=== PATIENT | male | born 2005 | race Caucasian/White ===

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

== ENCOUNTER 2024-07-03 16:24 | Emergency (ER) | payer OTHER, SELFPAY ==
[2024-07-03 16:25] VITALS: BP 116/72; PULSE 127; RESP 22; TEMP 36.9; O2SAT 100; BMI 31.0
--- NOTE | 2024-07-03 17:02 | EX.ED.DYSGE1 ---
HPI History of Present Illness Chief Complaint: General Illness Informant: patient Onset/Context/Timing Onset: Today Context: Gradual Onset Timing: Continuous Quality: Sharp Location: Right upper quadrant, right flank, and back Worsened by: Standing Relieved by: Nothing Narrative Narrative: Patient presents with right upper quadrant pain and right flank pain that began earlier this morning. Patient states that he started with some nausea and then started having pain. Patient describes the pain as sharp. Patient states it is over the right upper abdomen, right flank, and back. Patient states it is constant. Patient states it is worse when he stands up. Patient admits to some lightheadedness. Patient admits to nausea, vomiting, and diarrhea. Patient denies any melena or hematochezia. Patient denies any hematemesis or coffee-ground emesis. Patient denies any dysuria or hematuria. Patient admits to subjective fevers and chills. Patient also admits to some sweats. [facility] Medical History (Updated 07/03/24 @ 19:[address] Andrew Crook DO) Abdominal pain Hx of fracture of arm (~2015) Home Medications ?Medication ?Instructions ?Recorded ?Last Taken ?Type multivitamin,[id number]-[id number] PO 03/03/20 Unknown History (Complete Multivitamin tablet) amoxicillin 875 mg-potassium 875 mg PO Q12H #20 TABLETS 07/03/24 Unknown Rx clavulanate 125 mg tablet Allergy/AdvReac Type Severity Reaction Status Date / Time No Known Allergies Allergy Verified 07/03/24 16:25 Surgical History Hx of tonsillectomy (~2007) Social History Smoking Status: Unknown if ever smoked alcohol intake: never what type of physical activity do you participate in: walking, running and weight training frequency: 5-6 times per week duration: 45-60 minutes/day ROS ROS ED Constitutional Constitutional ED: Reports chills, fever(s), subjective and sweats Eyes Eyes: Denies blurry vision or change in vision ENT ENT ED: Denies rhinorrhea or sore throat Cardiovascular Cardiovascular: Denies chest pain or palpitations Respiratory/Chest Respiratory/Chest: Denies cough or dyspnea Gastrointestinal Gastrointestinal: Reports abdominal pain, diarrhea, nausea and vomiting; Denies melena Genitourinary Genitourinary ED: Denies dysuria, hematuria or urinary frequency Musculoskeletal Musculoskeletal: Reports back pain; Denies neck pain Integumentary Denies abscess or rash Neurologic Neurologic: Reports headache(s); Denies weakness Allergic/Immunologic Allergic/Immunologic ED: Denies mouth swelling or urticaria EXAM Physical Exam Const Vital Signs: 07/03/24 16:25 07/03/24 17:23 Temperature 98.4 F Temperature Source Oral Pulse Rate 127 H Respiratory Rate 22 H Respiratory Effort Normal Non-Labored Blood Pressure 116/72 Blood Pressure Mean 86 Pulse Ox 100 Oxygen Delivery Method Room Air Positive well nourished and well developed General Appearance ED: well developed and NAD HEENT Reports moist mucous membranes Neck supple and no JVD Resp normal respiratory effort and clear to auscultation bilaterally Cardio regular rate and regular rhythm GI non-distended Palpation: soft and tender epigastric and RUQ; Negative for guarding or rebound tenderness present Extremity normal to inspection General Extremety ED: Negative for edema or tenderness General Extremity: Negative for edema Neuro oriented x3, CN's II-XII intact bilaterally and no sensory deficits noted Sensorium / Orientation: alert Motor Exam: strength 5/5 throughout Psych mental status grossly normal MDM MDM MDM Narrative Medical decision making narrative: Differential diagnosis includes cholecystitis, cholelithiasis, pyelonephritis, ureteral calculus, gastroenteritis, colitis, pancreatitis, and urinary tract infection. CBC will be obtained to assess for leukocytosis and anemia. Comprehensive metabolic profile will be obtained to assess for hepatic function, renal function, and electrolyte abnormality. Lipase will be obtained to assess for pancreatitis. Urinalysis will be obtained to assess for urinary tract infection and hematuria. CT scan of the abdomen and pelvis will be obtained to assess for cholecystitis, cholelithiasis, pancreatitis, ureteral calculus, and colitis. Lab Data Attestation: I reviewed the patient's lab results. Lab results narrative: CBC was reviewed. There is a mild leukocytosis of 13.9. The remainder is within normal limits. Comprehensive metabolic profile was reviewed. Creatinine was slightly elevated at 1.37. The remainder was within normal limits. Urinalysis was reviewed. Leukocyte esterase was 25. Labs: Laboratory Results - last 24 hr 07/03/24 07/03/24 17:20 18:29 WBC 13.9 H RBC 5.39 Hgb 15.6 Hct 44.8 MCV 83.1 MCH 28.9 MCHC 34.8 RDW Std Deviation 37.3 RDW Coeff of [place] 12.3 Plt Count 426 MPV 8.2 Immature Gran % (Auto) 0.600 Neut % (Auto) 87.9 H Lymph % (Auto) 3.6 L [place] % (Auto) 7.6 Eos % (Auto) 0.0 Baso % (Auto) 0.3 Absolute Neuts (auto) 12.2 H Absolute Lymphs (auto) 0.50 L Nucleated RBC % 0 Sodium 134 L Potassium 4.1 Chloride 101 Carbon Dioxide 27.0 Anion Gap 7 BUN 18 Creatinine 1.37 H Estim Creat Clear Calc 91.95 Est GFR (MDRD) Af Amer 85 Est GFR (MDRD) Non-Af 70 BUN/Creatinine Ratio 13.1 Glucose 101 Calcium 9.7 Total Bilirubin 0.90 AST 22 ALT 27 Alkaline Phosphatase 123 H Total Protein 7.6 Albumin 4.1 Globulin 3.5 Albumin/Globulin Ratio 1.2 Lipase 18 Urine Color Yellow Urine Clarity Clear Urine pH 7.0 Ur Specific [place] 1.005 Urine Protein 30 H Urine Glucose (UA) Normal Urine Ketones Negative Urine Occult Blood Negative Urine Nitrite Negative Urine Bilirubin Negative Urine Urobilinogen 1 H Ur Leukocyte Esterase 25 H Radiography Diagnostic Testing: Clinical Impression(s) from Imaging Studies Abdomen/Pelvis CT 07/03/24 17:08 IMPRESSION: 1. Fluid-filled loops of small bowel which are mild enteritis. There is no obstruction. 2. Lymph nodes in the root of mesentery which may represent mesenteric adenitis. No other acute abnormalities are identified. Electronically Signed: Bairon Mancilla MD at 18:27 EST , CT scan of the abdomen and pelvis was obtained. There are fluid-filled loops of small bowel which are mild enteritis. There is no evidence of obstruction. There is some mesenteric adenitis. There is no free air or free fluid. This was interpreted by the radiologist was also independently reviewed by myself. Treatment and Re-Evaluation :: Patient was given IV fluids, morphine, and Zofran. Patient was feeling better on reevaluation. Patient was advised of his findings. Patient was given a prescription for Augmentin. Patient was instructed to start with a liquid diet and advance as tolerated. Patient was instructed to follow-up with his primary care physician in 5 to 7 days. Patient and family understood and were agreeable with the plan. All questions were answered. Discharge Plan Triage Chief Complaint: General Illness ED Provider: Andrew Crook Dx/Rx/DC Orders Clinical Impression: Enteritis, Abdominal pain Instructions: ED Abdominal Pain Unkn Cause Male... Prescriptions: New amoxicillin-pot clavulanate 875-125 mg tablet 875 mg PO Q12H Qty: 20 0RF No Action Complete Multivitamin Tablet PO Primary Care Provider: Care Physician,No Primary Referrals: Odell Schneider MD [Med Staff - Sexual Assault Response Coordinator] - 5-7 Days Care Physician,No Primary [Primary Care Provider] - Print Language: Czech Disposition Disposition: Home, Self Care
--- NOTE | 2024-07-03 17:08 | CT_ITS ---
EXAM: CT ABDOMEN AND PELVIS WITH INTRAVENOUS CONTRAST CLINICAL INDICATION: Abdominal pain TECHNIQUE: Helically acquired images were obtained of the abdomen and pelvis with intravenous contrast. This CT exam was performed using one or more of the following dose reduction techniques: automated exposure control, adjustment of the mA and/or kV according to patient size, and/or use of iterative reconstruction technique. CONTRAST: IV 100mL Isovue-300 COMPARISON: No relevant prior studies available. FINDINGS: LOWER THORAX: Unremarkable. Lung bases are clear. No cardiomegaly. No significant pericardial effusion. ABDOMEN: LIVER: Unremarkable. Homogeneous. No focal mass. GALLBLADDER AND BILE DUCTS: Unremarkable. No calcified gallstones. No gallbladder distention or wall edema. No intra- or extrahepatic biliary ductal dilation. PANCREAS: Unremarkable. No focal cystic or solid mass. SPLEEN: Unremarkable. Normal size without focal cystic or solid mass. ADRENALS: Unremarkable. No nodules. KIDNEYS AND URETERS: Unremarkable. Normal renal size and position. No hydronephrosis. STOMACH AND BOWEL: There are fluid-filled loops of small bowel which may represent mild enteritis. No stomach or bowel distention. PELVIS: APPENDIX: No evidence of acute appendicitis. BLADDER: Unremarkable. REPRODUCTIVE: Unremarkable as visualized. No mass. ABDOMEN and PELVIS: INTRAPERITONEAL SPACE: Unremarkable. No ascites or other fluid collection. No free air. BONES/JOINTS: Unremarkable. No suspicious lytic or blastic abnormality. SOFT TISSUES: Unremarkable. No discrete abdominal or pelvic wall hernia. VASCULATURE: Unremarkable. Abdominal aorta is non-dilated. LYMPH NODES: There are lymph nodes in the mesentery which may be due to mesenteric adenitis. CT/Abdomen/Pelvis W IV Cont ONLY IMPRESSION: 1. Fluid-filled loops of small bowel which are mild enteritis. There is no obstruction. 2. Lymph nodes in the root of mesentery which may represent mesenteric adenitis. No other acute abnormalities are identified. Electronically Signed: Bairon Mancilla MD at 18:27 EST ,
[2024-07-03] MEDS: Morphine 4 MG/ML Syringe IV (17:21)
[2024-07-03] MEDS: Ondansetron 4 MG/2 ML Vial IV (17:21)
[2024-07-03] MEDS: 0.9% Normal Saline (1000mL) 1,000 ML 1000 ML IV (17:21)
[2024-07-03 17:32] LABS: Absolute Neutrophil Count 12.2 X10^3/uL (2.0-7.7); Basophil# 0.04 X10^3/uL; Basophil% 0.3 % (0-1); Hematocrit 44.8 % (40-54); Hemoglobin 15.6 g/dL (13.0-16.5); Lymphocyte % 3.6 % (19-41); Mean Corp Hgb Conc 34.8 g/dL (32-36); Mean Corpuscular Hgb 28.9 pg (27.0-32.0); Mean Corpuscular Volume 83.1 fL (80-94); Mean Platelet Vol. 8.2 fl (6.2-12.0); Monocyte# 1.05 X10^3/uL; Monocyte% 7.6 % (0-10); NRBC Flagged by Analyzer 0 % (0-5); Neutrophil # 12.22 X10^3/uL (2.7-7.7); Neutrophil % 87.9 % (47-70); POSITIVE DIFFERENTIAL YES; Platelet Count 426 K/mm3 (150-450); RBC Distribution Width CV 12.3 % (11.6-14.6); RBC Distribution Width SD 37.3 fl (35.1-43.9); Red Blood Count 5.39 M/mm3 (4.6-6.2); White Blood Count 13.9 K/mm3 (4.4-11.0)
[2024-07-03 17:49] LABS: ALB/GLOB Ratio 1.2 RATIO (0.9-2.4); AST(SGOT) 22 U/L (15-37); Alanine Aminotransfer ALT/SGPT 27 U/L (16-61); Albumin, Serum 4.1 g/dL (3.2-5.0); Alkaline Phosphatase 123 U/L (45-117); Anion Gap 7 (5-15); BUN 18 mg/dL (7-18); BUN/Creat Ratio 13.1 RATIO (10-20); Calcium,Total 9.7 mg/dL (8.5-10.1); Chloride 101 mmol/L (98-107); Creatinine, Serum 1.37 mg/dL (0.70-1.30); EST Glomerular Filtration Rate 70 mL/min (>60); Est Glom Filt Rate - Afr Amer 85 mL/min (>60); Estimated Creatinine Clearance 91.95 ml/min; Globulin 3.5 g/dL (2.2-4.2); Glucose 101 mg/dL (74-106); Lipase 18 U/L (13-75); Potassium 4.1 mmol/L (3.5-5.1); Protein, Total 7.6 g/dL (6.4-8.2); Sodium Level 134 mmol/L (136-145)
[2024-07-03 18:42] LABS: Bacteria 0 SEEN /hpf (None Seen); Mucous, Urine 0 SEEN /hpf (<or=2+); Red Blood Cells-Urine 0 SEEN /hpf (0-5); Squamous Epithelial Cells - UA 0 SEEN /hpf (0-5); White Blood Cells 0 SEEN /hpf (0-5)
[2024-07-03 18:59] LABS: Color, Urine Yellow (Yellow); Glucose, Dipstick Normal (Normal); Ketone-Dipstick Negative (Negative); Leukocyte Esterase-Dipstick 25 /ul (Negative); Nitrite-Dipstick Negative (Negative); Occult Blood-Urine Negative /ul (Negative); Protein-Dipstick 30 mg/dl (Negative); Specific Gravity, Urine 1.005 (1.002-1.030); Urine Bilirubin Dipstick Negative (Negative); Urine Clarity Clear (Clear); Urine Urobilinogen 1 mg/dl (Normal)
[2024-07-03 19:28] VITALS: PULSE 81; RESP 18; O2SAT 97
[2024-07-03] MEDS: Amox/Clavulanate 875 MG Tablet PO (19:31)
== END 2024-07-03 19:33 | disposition home or self-care (01) ==
PROVIDERS: Emergency Provider Emergency Medicine; Visit Provider Emergency Medicine
DX: K52.9 Noninfective gastroenteritis and colitis, unspecified (principal)
CPT/HCPCS: 74177; 80053; 81001; 83690; 85025; 96361; 96374; 96375; 99283; Q9967; A4216; J2405